=== PATIENT | male | born 1990 | race Caucasian/White ===

== ENCOUNTER 2020-07-17 07:22 | Day surgery (SDC) | payer OTHER, SELFPAY ==
[~2020-07-17] VITALS: Ht 170.2 cm; Wt 61.2 kg
[2020-07-17] MEDS ORDERED: fentaNYL citrate 0.05 MG/ML VIAL ONE (10:15)
[2020-07-17] MEDS ORDERED: MIDAZOLAM 5 MG/5 ML VIAL ONE (10:15)
[2020-07-17] MEDS ORDERED: MIDAZOLAM 2 MG/2 ML VIAL IVP ONE (10:45)
== END 2020-07-17 11:20 | disposition home or self-care (01) ==
LOC: MDS 07:22 → MFCC 07:29 → MDS 11:20
PROVIDERS: ATTEND Internal Medicine Gastroenterology
DX: R10.12 Left upper quadrant pain (principal); K22.10 Ulcer of esophagus without bleeding; K44.9 Diaphragmatic hernia without obstruction or gangrene; Z91.038 Other insect allergy status; Z79.899 Other long term (current) drug therapy; Z20.828 Contact with and (suspected) exposure to other viral communicable diseases
CPT/HCPCS: 36415; 43239; 86677; J2250; J3010; U0003

== ENCOUNTER 2021-03-26 06:50 | Day surgery (SDC) | payer OTHER, SELFPAY ==
[~2021-03-26] VITALS: Ht 134.6 cm; Wt 57.2 kg
[~2021-03-26 06:50] MED LIST: CITA10TA11 PO; MAGN400S60 PO; MONT10TA35 GT
[2021-03-26] MEDS ORDERED: fentaNYL citrate 0.05 MG/ML VIAL ONE (08:42)
[2021-03-26] MEDS ORDERED: LIDOCAINE 2% 100 MG/5 ML UJET TP ONE ×2 (08:42→09:20)
[2021-03-26] MEDS ORDERED: MIDAZOLAM 5 MG/5 ML VIAL ONE ×2 (08:51→09:10)
[2021-03-26] MEDS ORDERED: MIDAZOLAM 2 MG/2 ML VIAL IVP ONE (09:20)
[2021-03-26] MEDS ORDERED: fentaNYL citrate 0.05 MG/ML VIAL IVP ONE (09:20)
== END 2021-03-26 10:25 | disposition home or self-care (01) ==
LOC: MOR 06:50 → MMU 06:50 → MOR 10:25
PROVIDERS: ATTEND Internal Medicine Gastroenterology
DX: K62.5 Hemorrhage of anus and rectum (principal); Z91.048 Other nonmedicinal substance allergy status; Z79.899 Other long term (current) drug therapy; Z20.822 Contact with and (suspected) exposure to COVID-19
CPT/HCPCS: 45378; 87426; J2250; J3010

== ENCOUNTER 2021-08-08 12:15 | Emergency (ER) | payer OTHER, SELFPAY ==
[~2021-08-08] VITALS: Ht 139.7 cm; Wt 53.1 kg
[2021-08-08 12:17] VITALS: BP 140/87
--- NOTE | 2021-08-08 13:17 | NUR ---
VERA GRIFFIN WITH ASSISTED TO DENNIS Jordan
--- NOTE | 2021-08-08 13:23 | NUR ---
DR. FLORES AT PT BEDSIDE FOR FURTHER EVALUATION.
[2021-08-08] MEDS ORDERED: ONDANSETRON 4 MG ODT PO ONE (13:30)
[2021-08-08] MEDS ORDERED: DICYCLOMINE HCL LIQUID 20 MG, ALUMINUM HYD/MAG/SIMETHICONE 30 ML, LIDOCAINE VISCOUS 2% ... PO ONE ×3 (13:30)
[2021-08-08] MEDS ORDERED: DICYCLOMINE HCL LIQUID 10 MG/5 ML UDC ONE (13:37)
[2021-08-08] MEDS ORDERED: ALUMINUM HYD/MAG/SIMETHICONE 30 ML UDC ONE (13:37)
--- NOTE | 2021-08-08 14:05 | NUR ---
pt being taken to xray via wheelchair
[2021-08-08 14:14] LABS: BASOPHILS # (AUTO) 0.1 K/uL (0.00-0.22); BASOPHILS % (AUTO) 0.7 % (0.0-2.0); EOSINOPHILS % (AUTO) 0.2 % (0.0-4.0); HEMATOCRIT 44.8 % (36-52); HEMOGLOBIN 15.2 g/dL (12.0-18.0); LYMPHOCYTES # (AUTO) 1.9 K/uL (2.0-11.5); LYMPHOCYTES % (AUTO) 18.3 % (20.5-51.1); MEAN CORPUSCULAR HEMOGLOBIN 28 pg (27-31); MEAN CORPUSCULAR HGB CONC 34 g/dL (33-37); MEAN CORPUSCULAR VOLUME 82.4 fL (80-94); MONOCYTES # (AUTO) 0.9 K/uL (0.8-1.0); MONOCYTES % (AUTO) 9.1 % (1.7-9.3); NEUTROPHILS # (AUTO) 7.5 K/uL (1.8-7.7); NEUTROPHILS % (AUTO) 71.7 % (42.2-75.2); PLATELET COUNT (AUTO) 198 K/uL (140-450); RED BLOOD CELL COUNT(AUTO) 5.44 MIL/uL (4.20-6.10); RED CELL DISTRIBUTION WIDTH 14.4 % (11.6-13.7); WHITE BLOOD COUNT (AUTO) 10.4 K/uL (4.8-10.8)
[2021-08-08] MEDS ORDERED: MAG355OR2 PO (14:28)
[2021-08-08] MEDS ORDERED: ONDA-188 PO (14:28)
[2021-08-08] MEDS ORDERED: FAMO-90 PO (14:28)
[2021-08-08 15:09] LABS: ALBUMIN 4.7 g/dL (3.4-5.0); ANION GAP 12.9 (8-16); CARBON DIOXIDE 27.8 mmol/L (21-32); CREATININE 0.7 mg/dL (0.6-1.3); POTASSIUM 4.7 mmol/L (3.5-5.1); TOTAL BILIRUBIN 0.7 mg/dL (0.0-1.0)
[2021-08-08 15:27] VITALS: BP 140/87
--- NOTE | 2021-08-08 15:27 | NUR ---
Patient discharged with v/s stable. Written and verbal after care instructions given and explained. Patient alert, oriented and verbalized understanding of instructions. Ambulatory with brother to car. All questions addressed prior to discharge. ID band removed. Patient advised to follow up with PMD. Rx of famotidine, mag hydrox, zofran (sent) given. Patient educated on indication of medication including possible reaction and side effects. Opportunity to ask questions provided and answered.
== END 2021-08-08 15:27 | disposition home or self-care (01) ==
LOC: MED 12:15
DX: R11.10 Vomiting, unspecified (principal); R10.84 Generalized abdominal pain; J45.909 Unspecified asthma, uncomplicated; Z79.899 Other long term (current) drug therapy; Z98.890 Other specified postprocedural states
CPT/HCPCS: 36415; 74021; 80053; 81002; 83690; 85025; 99284; Q0162

== ENCOUNTER 2023-11-27 09:26 | Emergency (ER) | payer OTHER ==
[~2023-11-27] VITALS: Ht 142.2 cm; Wt 55.8 kg
[~2023-11-27 09:26] MED LIST changes: +FAMO-90 PO; +MAG355OR2 PO; +MONT-72 GT; -MONT10TA35 GT; +ONDA-188 PO
[2023-11-27 09:46] VITALS: BP 132/88; PULSE 111; RESP 18; TEMP 97.8; O2SAT 96
[2023-11-27] MEDS: ACETAMINOPHEN 325 MG TAB PO ONE (10:45)
[2023-11-27 12:38] VITALS: BP 134/64; PULSE 80; RESP 18; TEMP 97.3; O2SAT 99
== END 2023-11-27 12:34 | disposition home or self-care (01) ==
LOC: MED 09:26
DX: S96.912A Strain of unspecified muscle and tendon at ankle and foot level, left foot, initial encounter (principal); F41.9 Anxiety disorder, unspecified; J45.909 Unspecified asthma, uncomplicated; Z79.1 Long term (current) use of non-steroidal anti-inflammatories (NSAID); Z79.899 Other long term (current) drug therapy; W19.XXXA Unspecified fall, initial encounter; Y93.89 Activity, other specified; Y92.89 Other specified places as the place of occurrence of the external cause; Y99.8 Other external cause status
CPT/HCPCS: 73610; 73630; 99284

== ENCOUNTER 2024-02-17 18:18 | Emergency (ER) | payer OTHER ==
[~2024-02-17] VITALS: Ht 152.4 cm; Wt 59.0 kg
[2024-02-17 18:41] VITALS: BP 120/78; PULSE 78; RESP 20; TEMP 97.8; O2SAT 98
[2024-02-17] MEDS ORDERED: HALOPERIDOL IM 5 MG/ML VIAL ONE (20:36)
[2024-02-17] MEDS ORDERED: METOCLOPRAMIDE 10 MG/2 ML INJ VIAL ONE (20:36)
[2024-02-17] MEDS: METOCLOPRAMIDE 10 MG/2 ML INJ VIAL IVP ONE (20:38)
[2024-02-17] MEDS: NACL 0.9% 1,000 ML IV ONE (20:38)
[2024-02-17] MEDS: HALOPERIDOL IM 5 MG/ML VIAL IM ONE (20:41)
[2024-02-17] MEDS ORDERED: MAGN400S60 PO (21:40)
[2024-02-17 21:43] VITALS: BP 120/78; PULSE 78; RESP 20; TEMP 97.8; O2SAT 98
== END 2024-02-17 21:43 | disposition home or self-care (01) ==
LOC: MED 18:18
DX: K59.00 Constipation, unspecified (principal); R06.6 Hiccough; J45.909 Unspecified asthma, uncomplicated; Z79.899 Other long term (current) drug therapy
CPT/HCPCS: 74018; 96361; 96372; 96374; 99284; J1630; J2765; J7030